=== PATIENT | female | born 1980 | race Two or more races ===

== ENCOUNTER 2016-10-22 17:43 | Emergency (ER) | payer MEDICAID ==
[~2016-10-22] VITALS: Ht 157.5 cm; Wt 83.9 kg
[~2016-10-22 17:43] MED LIST: ALBU18 IN; LISI-646 PO; LORA-154 PO
[2016-10-22 17:58] VITALS: BP 172/101
[2016-10-22] MEDS ORDERED: IPRATROPIUM BROM 0.5 MG/2.5ML INH SOL NEB ONE (21:15)
[2016-10-22] MEDS ORDERED: methylPREDNISolone SOD SUCC 125 MG/2 ML VL IM ONE (21:15)
[2016-10-22] MEDS ORDERED: ALBUTEROL SULF 2.5 MG/0.5ML(0.5%) NEB SOLN NEB ONE (21:15)
== END 2016-10-22 22:10 | disposition home or self-care (01) ==
LOC: ER 17:49
DX: J45.909 Unspecified asthma, uncomplicated (principal); I10 Essential (primary) hypertension; Z90.89 Acquired absence of other organs
CPT/HCPCS: 71020; 94640; 96372; 99284; J2930

== ENCOUNTER 2016-12-11 16:01 | Emergency (ER) | payer MEDICAID ==
[~2016-12-11] VITALS: Ht 157.5 cm; Wt 81.6 kg
[2016-12-11 17:00] LABS: Urine Bilirubin Negative (Negative); Urine Blood Negative /uL (Negative); Urine Color Yellow (Yellow); Urine Glucose Normal (Normal); Urine Ketone Negative (Negative); Urine Nitrite Negative (Negative); Urine RBC <1 /hpf (0 - 4); Urine Squamous Epithelial Cell FEW /hpf (<5); Urine Urobilinogen Normal (Negative); Urine pH 5.5 (5.0-8.0)
[2016-12-11 17:38] LABS: Basophils # (auto) 0 uL; Basophils % (auto) 0.3 % (0.0-2.0); DEFINITIVE VIEW TRANSMISSION; Eosinophils # (auto) 0.8 uL; Hematocrit 39.8 % (36.0-46.0); Hemoglobin 13.3 g/dL (12.2-16.2); Lymphocytes # (auto) 2.1 uL; Lymphocytes % (auto) 15.2 % (10.0-50.0); Mean Corpuscular Hemoglobin 26.6 pg (28.0-32.0); Mean Corpuscular Hgb Conc. 33.4 g/dL (32.0-36.0); Mean Corpuscular Volume 79.5 fL (80.0-100.0); Mean Platelet Volume 8.4 fL (7.4-10.4); Monocytes # (auto) 0.7 uL; Monocytes % (auto) 4.9 % (0.0-12.0); Neutrophils # (auto) 10.4 uL; Neutrophils % (auto) 73.6 % (37.0-80.0); Platelet Count (auto) 286 10^3/uL (140-450); Red Cell Distribution Width 16.6 % (11.6-16.0); White Blood Cell 14.1 10^3/uL (4.4-10.8)
[2016-12-11 17:39] LABS: Albumin 3.4 g/dL (3.4-5.0); Anion Gap 10 (5-15); Aspartate Aminotransferase 15 U/L (15-37); BUN/Creatinine Ratio 16.4; Blood Urea Nitrogen 9 mg/dL (7-18); Calcium 8.7 mg/dL (8.5-10.1); Carbon Dioxide 26 mmol/L (21-32); Chloride 104 mmol/L (98-107); GFR African American 159 mL/min; GFR Non-African American 131 mL/min; Glucose 111 mg/dL (74-106); Potassium 3.5 mmol/L (3.5-5.1); Sodium 140 mmol/L (136-145)
[2016-12-11 17:44] LABS: Alkaline Phosphatase 97 U/L (45-117); Bilirubin, Total 0.5 mg/dL (0.2-1.0); Total Protein 7.5 g/dL (6.4-8.2)
[2016-12-11] MEDS ORDERED: KETOROLAC TROMETH 30 MG/ML 1ML VIAL IV ONE (22:15)
[2016-12-11 22:49] LABS: B-Type Natriuretic Peptide 8.43 pg/mL (0-100)
[2016-12-11 22:49] LABS: INR 0.97 (0.9-1.15); Partial Thromboplastin Time 28.8 sec (22.64-33.71)
[2016-12-11 22:52] LABS: Temperature: 20.5 C (20.0-25.0)
[2016-12-11] MEDS ORDERED: IOHEXOL 350 MG/ML 100ML IJ ONE (23:00)
[2016-12-12] MEDS ORDERED: LEVOFLOXACIN 750MG 150 ML IV ONE (00:15)
[2016-12-12 01:12] VITALS: BP 140/103
== END 2016-12-12 02:58 | disposition home or self-care (01) ==
LOC: ER 16:02
DX: J18.9 Pneumonia, unspecified organism (principal); J45.909 Unspecified asthma, uncomplicated; I10 Essential (primary) hypertension; Z90.89 Acquired absence of other organs
CPT/HCPCS: 36415; 71020; 71275; 80053; 81001; 81025; 83880; 84484; 85025; 85610; 85730; 93005; 94761; 96365; 96366; 96375; 99285; J1885; J1956; Q9967

== ENCOUNTER 2017-01-01 21:25 | Emergency (ER) | payer MEDICAID ==
[~2017-01-01] VITALS: Ht 157.5 cm; Wt 81.6 kg
[2017-01-01] MEDS ORDERED: IPRATROPIUM BROM 0.5 MG/2.5ML INH SOL NEB ONE (21:45)
[2017-01-01] MEDS ORDERED: ALBUTEROL SULF 2.5 MG/0.5ML(0.5%) NEB SOLN NEB ONE (21:45)
[2017-01-01 22:28] LABS: DEFINITIVE VIEW TRANSMISSION; Hematocrit 41.3 % (36.0-46.0); Hemoglobin 13.7 g/dL (12.2-16.2); Mean Corpuscular Hemoglobin 26.4 pg (28.0-32.0); Mean Corpuscular Hgb Conc. 33.2 g/dL (32.0-36.0); Mean Corpuscular Volume 79.4 fL (80.0-100.0); Mean Platelet Volume 8.7 fL (7.4-10.4); Platelet Count (auto) 271 10^3/uL (140-450); Red Cell Distribution Width 15.9 % (11.6-16.0); White Blood Cell 9.4 10^3/uL (4.4-10.8)
[2017-01-01 22:37] LABS: Metamyelocytes % 0; Myelocytes % 0; Promyelocytes % 0; Reactive Lymphocytes 0
[2017-01-01 22:46] LABS: Albumin 3.9 g/dL (3.4-5.0); BUN/Creatinine Ratio 19.7; Bilirubin, Total 0.6 mg/dL (0.2-1.0); Calcium 9.3 mg/dL (8.5-10.1); Potassium 3.9 mmol/L (3.5-5.1); Total Protein 8.1 g/dL (6.4-8.2)
[2017-01-01 23:18] LABS: Platelet Estimate Adequate
[2017-01-02] MEDS ORDERED: IPRATROPIUM BROM 0.5 MG/2.5ML INH SOL NEB ONE (02:00)
[2017-01-02] MEDS ORDERED: ALBUTEROL SULF 2.5 MG/0.5ML(0.5%) NEB SOLN NEB ONE (02:00)
[2017-01-02] MEDS ORDERED: SODIUM CHLORIDE 0.9% 1,000 ML IV ONE (02:00)
[2017-01-02] MEDS ORDERED: LEVOFLOXACIN 750MG 150 ML IV ONE (02:00)
[2017-01-02] MEDS ORDERED: traMADol HCL 50 MG TAB PO ONE (02:45)
[2017-01-02] MEDS ORDERED: methylPREDNISolone SOD SUCC 125 MG/2 ML VL IV ONE (02:45)
[2017-01-02 05:20] VITALS: BP 148/100
== END 2017-01-02 06:46 | disposition home or self-care (01) ==
LOC: ER 21:38
DX: J45.909 Unspecified asthma, uncomplicated (principal); I10 Essential (primary) hypertension; R53.1 Weakness; Z90.49 Acquired absence of other specified parts of digestive tract
CPT/HCPCS: 36415; 71010; 80053; 85007; 85027; 87040; 94640; 96365; 96366; 96375; 99285; J1956; J2930

== ENCOUNTER 2017-01-22 15:37 | Emergency (ER) | payer MEDICAID ==
[~2017-01-22] VITALS: Ht 157.5 cm; Wt 79.4 kg
[2017-01-22 16:49] LABS: Urine Bilirubin Negative (Negative); Urine Blood Negative /uL (Negative); Urine Color Yellow (Yellow); Urine Glucose Normal (Normal); Urine Ketone Negative (Negative); Urine Nitrite Negative (Negative); Urine RBC 1 /hpf (0 - 4); Urine Squamous Epithelial Cell FEW /hpf (<5); Urine Urobilinogen Normal (Negative)
[2017-01-22 17:19] LABS: DEFINITIVE VIEW TRANSMISSION; Hematocrit 45.5 % (36.0-46.0); Hemoglobin 15.1 g/dL (12.2-16.2); Mean Corpuscular Hemoglobin 26.3 pg (28.0-32.0); Mean Corpuscular Hgb Conc. 33.1 g/dL (32.0-36.0); Mean Corpuscular Volume 79.3 fL (80.0-100.0); Mean Platelet Volume 8.4 fL (7.4-10.4); Platelet Count (auto) 271 10^3/uL (140-450); Red Cell Distribution Width 15.2 % (11.6-16.0); White Blood Cell 11.6 10^3/uL (4.4-10.8)
[2017-01-22 17:21] LABS: Metamyelocytes % 0; Myelocytes % 0; Promyelocytes % 0; Reactive Lymphocytes 0
[2017-01-22 17:52] LABS: Hypochromia Slight; Platelet Estimate Adequate
[2017-01-22 17:55] LABS: Albumin 3.9 g/dL (3.4-5.0); Alkaline Phosphatase 81 U/L (45-117); Anion Gap 7 (5-15); Aspartate Aminotransferase 26 U/L (15-37); BUN/Creatinine Ratio 13.8; Bilirubin, Total 0.6 mg/dL (0.2-1.0); Blood Urea Nitrogen 8 mg/dL (7-18); Calcium 9.2 mg/dL (8.5-10.1); Carbon Dioxide 26 mmol/L (21-32); Chloride 104 mmol/L (98-107); GFR African American 149 mL/min; GFR Non-African American 123 mL/min; Glucose 92 mg/dL (74-106); Magnesium 2.2 mg/dL (1.6-2.6); Potassium 3.6 mmol/L (3.5-5.1); Sodium 137 mmol/L (136-145); Total Protein 8.3 g/dL (6.4-8.2)
[2017-01-22 18:26] VITALS: BP 163/119
[2017-01-22] MEDS ORDERED: cefTRIAXone SOD 1,000 MG VL IM ONE (19:00)
== END 2017-01-22 19:31 | disposition home or self-care (01) ==
LOC: ER 15:37
DX: K02.9 Dental caries, unspecified (principal); R07.9 Chest pain, unspecified; I10 Essential (primary) hypertension; J45.909 Unspecified asthma, uncomplicated; Z88.6 Allergy status to analgesic agent
CPT/HCPCS: 36415; 71010; 80053; 81001; 81025; 83735; 84484; 84702; 85007; 85027; 93005; 96372; 99285; J0696

== ENCOUNTER 2019-08-12 11:52 | Inpatient (IN) | payer SELFPAY ==
[~2019-08-12] VITALS: Ht 157.5 cm; Wt 92.9 kg
[~2019-08-12 11:52] MED LIST changes: +ALBU108A5; +FLUT50SP; -LISI-646 PO; +LISI40TA PO
[2019-08-12 12:27] LABS: Hematocrit 43.4 % (36.0-46.0); Hemoglobin 14.6 g/dL (12.2-16.2); Mean Corpuscular Hgb Conc. 33.6 g/dL (32.0-36.0); Mean Corpuscular Volume 83.4 fL (80.0-100.0); Platelet Count (auto) 224 10^3/uL (140-450); Red Cell Distribution Width 14.9 % (11.8-14.3); White Blood Cell 10.6 10^3/uL (4.4-10.8)
[2019-08-12 12:29] LABS: Band Neutrophils % (manual) 0; Basophils % (manual) 0 (0.0-2.0); Blast Cells 0; Metamyelocytes % 0; Myelocytes % 0; Promyelocytes % 0; Reactive Lymphocytes 0
[2019-08-12] MEDS ORDERED: IPRATROPIUM BROM 0.5 MG/2.5ML INH SOL HHN ONE (12:30)
[2019-08-12] MEDS ORDERED: ALBUTEROL SULF 2.5 MG/0.5ML(0.5%) NEB SOLN HHN ONE (12:30)
[2019-08-12] MEDS ORDERED: methylPREDNISolone SOD SUCC 125 MG/2 ML VL IV ONE (12:30)
[2019-08-12 12:44] LABS: Alanine Aminotransferase 30 U/L (13-56); Albumin 3.6 g/dL (3.4-5.0); Anion Gap 5 (5-15); Aspartate Aminotransferase 16 U/L (15-37); BUN/Creatinine Ratio 16.1; Blood Urea Nitrogen 9 mg/dL (7-18); Calcium 8.9 mg/dL (8.5-10.1); Carbon Dioxide 27 mmol/L (21-32); Chloride 105 mmol/L (98-107); Eosinophils % (manual) 25 (0-7); GFR African American 153 mL/min; GFR Non-African American 127 mL/min; Glucose 106 mg/dL (74-106); Lymphocytes % (manual) 31 (10.0-50.0); Monocytes % (manual) 4 (0-12); Potassium 3.5 mmol/L (3.5-5.1); Sodium 137 mmol/L (136-145)
[2019-08-12 12:48] LABS: Alkaline Phosphatase 70 U/L (45-117); Bilirubin, Total 0.7 mg/dL (0.2-1.0); Total Protein 7.1 g/dL (6.4-8.2)
[2019-08-12 14:26] LABS: Urine Bacteria NONE SEEN /hpf (None Seen); Urine Blood Negative /uL (Negative); Urine Hyaline Cast FEW /lpf (0 - 2); Urine Mucus FEW (None Seen); Urine Specific Gravity 1.023 (1.001-1.035); Urine WBC 1 /hpf (0 - 5)
[2019-08-12] MEDS ORDERED: PROMETHAZINE HCL 25 MG/ML 1ML IV PRN (14:30)
[2019-08-12] MEDS ORDERED: NITROGLYCERIN 0.4 MG SL TAB SL PRN (14:30)
[2019-08-12] MEDS ORDERED: TEMAZEPAM 15 MG CAP PO PRN (14:30)
[2019-08-12] MEDS ORDERED: ACETAMINOPHEN 500 MG TAB PO PRN (14:30)
[2019-08-12] MEDS ORDERED: MORPHINE SULF INJ 2 MG/ML SYRINGE 1ML IV PRN (14:30)
[2019-08-12] MEDS ORDERED: LACTULOSE 20Gm/30ML SOLN PO PRN (14:30)
[2019-08-12] MEDS ORDERED: ALBUTEROL SULF 2.5 MG/0.5ML(0.5%) NEB SOLN NEB PRN (14:30)
[2019-08-12 14:54] VITALS: BP 140/93
[2019-08-12 15:04] LABS: Alcohol, Urine < 3.0 mg/dL (0-5); Amphetamine Screen, Urine NEGATIVE (NEGATIVE); Barbiturate Scree,Urine NEGATIVE (NEGATIVE); Benzodiazephine Screen, Urine NEGATIVE (NEGATIVE); Cannabinoid Screen, Urine POSITIVE (NEGATIVE); Cocaine Screen, Urine NEGATIVE (NEGATIVE); Opiate Scree,Urine NEGATIVE (NEGATIVE); Phencyclidine Screen, Urine NEGATIVE (NEGATIVE)
[2019-08-12] MEDS: SODIUM CHLORIDE 0.9% 1,000 ML IV SCH (15:16)
[2019-08-12] MEDS: DOXYCYCLINE 100MG/250ML 250 ML IV SCH (15:19)
[2019-08-12] MEDS: ALBUTEROL SULF 2.5 MG/0.5ML(0.5%) NEB SOLN NEB SCH (17:40)
--- NOTE | 2019-08-12 18:30 | NUR ---
Telemetry admit from ER BAUDILIOALLYSSA admitted to Telemetry unit after SBAR received. Patient oriented to Latoya Carbajal RN, unit, room, bed, and unit policies regarding patient care and visiting hours. Patient now on continuous telemetry monitoring, tele box #[id number] and telemetry reading on arrival to unit is sinus tachycardia rate is 111 bpm. Patient placed on bedside oxygen, weighed by bedscale and encouraged to call if they need something. All questions and concerns addressed, patient verbalized understanding. Note:
[2019-08-12] MEDS: methylPREDNISolone SOD SUCC 40 MG/ML VL IV SCH ×2 (18:55→23:50)
--- NOTE | 2019-08-12 19:05 | NUR ---
Opening Shift Note Assumed care of patient, awake and alert. No S/S of distress, no complaints of SOB at this time. POC discussed and questions answered. Bed is locked in lowest position with side rails up x2, call is within reach and patient is encouraged to call as needed. Will continue to monitor for changes Q1hr and PRN.
--- NOTE | 2019-08-12 19:21 | NUR ---
Endorsed care to NOC RN.
[2019-08-12 20:00] VITALS: BP_SYST 132; BP_SYST 159; BP_DIAS 84; BP_DIAS 85
[2019-08-12] MEDS: traMADol HCL 50 MG TAB PO PRN (20:22)
[2019-08-12 22:10] VITALS: BP 159/85
[2019-08-13] MEDS: ALBUTEROL SULF 2.5 MG/0.5ML(0.5%) NEB SOLN NEB SCH ×4 (00:39→18:01)
[2019-08-13] MEDS: DOXYCYCLINE 100MG/250ML 250 ML IV SCH (02:22)
[2019-08-13] MEDS: SODIUM CHLORIDE 0.9% 1,000 ML IV SCH (03:46)
--- NOTE | 2019-08-13 04:55 | NUR ---
EKG COMPLETE PER ORDERS. PATIENT HAS NO COMPLAINTS OF CHEST PAIN AT THIS TIME.
[2019-08-13 05:00] VITALS: BP 147/85
[2019-08-13] MEDS: methylPREDNISolone SOD SUCC 40 MG/ML VL IV SCH ×3 (06:03→17:46)
[2019-08-13] MEDS: traMADol HCL 50 MG TAB PO PRN (06:07)
[2019-08-13 08:00] VITALS: BP 140/87
[2019-08-13] MEDS: ENOXAPARIN SOD 40 MG/0.4 ML SYRINGE SC SCH (09:11)
[2019-08-13] MEDS: PANTOPRAZOLE 40 MG TAB PO SCH (09:11)
[2019-08-13 12:00] VITALS: BP 147/87
[2019-08-13] MEDS ORDERED: LISINOPRIL 20 MG TAB PO ONE (14:00)
[2019-08-13] MEDS ORDERED: LORATADINE 10 MG TAB PO ONE (14:00)
[2019-08-13] MEDS: KETOROLAC TROMETH 30 MG/ML 1ML VIAL IV PRN ×2 (14:24→20:51)
[2019-08-13 16:59] VITALS: BP 144/93
--- NOTE | 2019-08-13 19:05 | NUR ---
Opening Shift Note Assumed care of patient, awake and alert. No S/S of distress/SOB or pain. Instructed on POC and to call for assistance as needed, will continue to monitor for changes Q1hr and PRN.
[2019-08-13] MEDS: DOXYCYCLINE 100 MG TAB/CAP PO SCH (22:11)
[2019-08-13 22:35] VITALS: BP 141/79
[2019-08-14] MEDS: methylPREDNISolone SOD SUCC 40 MG/ML VL IV SCH ×4 (00:10→19:48)
[2019-08-14] MEDS: ALBUTEROL SULF 2.5 MG/0.5ML(0.5%) NEB SOLN NEB SCH ×4 (00:30→19:05)
[2019-08-14 05:13] VITALS: BP 144/82
[2019-08-14] MEDS: traMADol HCL 50 MG TAB PO PRN ×2 (05:48→20:55)
[2019-08-14 08:00] VITALS: BP 141/85
--- NOTE | 2019-08-14 08:00 | NUR ---
Opening Shift Note Assumed care of patient, awake and alert. No S/S of distress/SOB or pain. Instructed on POC and to call for assist PRN, bed in locked and lowest position and call light within reach. Will continue to monitor for changes Q1hr and PRN.
[2019-08-14] MEDS: LORATADINE 10 MG TAB PO SCH (10:00)
[2019-08-14] MEDS: DOXYCYCLINE 100 MG TAB/CAP PO SCH ×2 (10:00→20:55)
[2019-08-14] MEDS: PANTOPRAZOLE 40 MG TAB PO SCH (10:00)
[2019-08-14] MEDS: ENOXAPARIN SOD 40 MG/0.4 ML SYRINGE SC SCH (10:00)
[2019-08-14] MEDS: LISINOPRIL 20 MG TAB PO SCH (10:01)
[2019-08-14 12:00] VITALS: BP 143/97
--- NOTE | 2019-08-14 12:15 | NUR ---
MD ROUNDS DR ADAMES AT BEDSIDE DISCUSSING POC WITH PATIENT. ALL QUESTIONS/CONCERNS ANSWERED. NEW ORDERS RECEIVED/CARRIED OUT. WILL CONTINUE TO MONITOR
[2019-08-14] MEDS ORDERED: DOX100T PO (13:12)
[2019-08-14] MEDS ORDERED: MONT10TA34 PO (13:12)
[2019-08-14 17:00] VITALS: BP 147/103
[2019-08-14 22:00] VITALS: BP 166/95
[2019-08-14] MEDS ORDERED: MONTELUKAST SODIUM 10 MG TAB PO SCH (22:00)
[2019-08-15] MEDS: ALBUTEROL SULF 2.5 MG/0.5ML(0.5%) NEB SOLN NEB SCH ×3 (00:04→11:00)
[2019-08-15] MEDS: methylPREDNISolone SOD SUCC 40 MG/ML VL IV SCH ×3 (00:26→12:00)
--- NOTE | 2019-08-15 04:15 | NUR ---
Opening Shift Note Assumed care of patient, asleep on bed resting comfortably. No S/S of distress/SOB or pain. Instructed on POC and to call for assist PRN, will continue to monitor for changes Q1hr and PRN.
[2019-08-15 05:15] VITALS: BP 158/100
[2019-08-15] MEDS: KETOROLAC TROMETH 30 MG/ML 1ML VIAL IV PRN (06:25)
[2019-08-15] MEDS: IPRATROPIUM BROM 0.5 MG/2.5ML INH SOL NEB SCH ×2 (06:27→11:00)
[2019-08-15 09:00] VITALS: BP 158/102
[2019-08-15] MEDS: ENOXAPARIN SOD 40 MG/0.4 ML SYRINGE SC SCH (10:00)
[2019-08-15] MEDS: DOXYCYCLINE 100 MG TAB/CAP PO SCH (10:36)
[2019-08-15] MEDS: LISINOPRIL 20 MG TAB PO SCH (10:37)
[2019-08-15] MEDS: LORATADINE 10 MG TAB PO SCH (10:37)
[2019-08-15] MEDS: PANTOPRAZOLE 40 MG TAB PO SCH (10:38)
--- NOTE | 2019-08-15 12:40 | NUR ---
Discharge instructions given as ordered. Encourage to follow up with [facility] urgent care, coupon provided, pt has no pcp and insurance, pt provided with needed information to get primary doctor as instructed. All questions and concerns addressed. Patient verbalized understanding. Medication reconciliation form completed and copy given to patient. IV removed with catheter intact, pressure dressing applied. Telemetry unit returned to ICU. Patient taken to vehicle via wheelchair with all personal belongings, accompanied by staff and family member. No distress noted at time of departure.
== END 2019-08-15 12:40 | disposition home or self-care (01) | DRG 189 ==
LOC: ER 11:58 → TELE 11:59 → TELE-WESTW 18:34
PROVIDERS: ADMIT Internal Medicine; ATTEND Internal Medicine
DX: J96.00 Acute respiratory failure, unspecified whether with hypoxia or hypercapnia (principal); J45.902 Unspecified asthma with status asthmaticus; I10 Essential (primary) hypertension; E66.01 Morbid (severe) obesity due to excess calories; F12.90 Cannabis use, unspecified, uncomplicated; R07.81 Pleurodynia; Z68.37 Body mass index [BMI] 37.0-37.9, adult; Z88.5 Allergy status to narcotic agent; Z82.49 Family history of ischemic heart disease and other diseases of the circulatory system; Z82.5 Family history of asthma and other chronic lower respiratory diseases; Z83.3 Family history of diabetes mellitus; Z90.49 Acquired absence of other specified parts of digestive tract
CPT/HCPCS: 36415; 71046; 80053; 80307; 81001; 82550; 84484; 85007; 85027; 85379; 85652; 87070; 87205; 87804; 94640; 94644; 96361; 96374; G0378; J1885; J3490

== ENCOUNTER 2019-10-30 11:51 | Emergency (ER) | payer MEDICAID ==
[~2019-10-30] VITALS: Ht 160 cm; Wt 88.5 kg
[~2019-10-30 11:51] MED LIST changes: +DOX100T PO; +MONT10TA34 PO
[2019-10-30] MEDS ORDERED: SODIUM CHLORIDE 0.9% 1,000 ML IV ONE ×2 (12:20→16:00)
[2019-10-30] MEDS ORDERED: ALBUTEROL SULF 2.5 MG/0.5ML(0.5%) NEB SOLN HHN ONE (12:30)
[2019-10-30] MEDS ORDERED: methylPREDNISolone SOD SUCC 125 MG/2 ML VL IV ONE (12:30)
[2019-10-30 12:59] LABS: Mean Corpuscular Hemoglobin 28.5 pg (28.0-32.0); Mean Corpuscular Hgb Conc. 34.1 g/dL (32.0-36.0); Mean Corpuscular Volume 83.4 fL (80.0-100.0); Platelet Count (auto) 220 10^3/uL (140-450); Red Blood Cells 5.28 10^6/uL (4.0-5.20); Red Cell Distribution Width 13.9 % (11.8-14.3); White Blood Cell 7.9 10^3/uL (4.4-10.8)
[2019-10-30 13:08] LABS: Band Neutrophils % (manual) 0; Basophils % (manual) 0 (0.0-2.0); Blast Cells 0; Metamyelocytes % 0; Myelocytes % 0; Promyelocytes % 0; Reactive Lymphocytes 0
[2019-10-30 13:11] LABS: Albumin 4.1 g/dL (3.4-5.0); Anion Gap 8 (5-15); Blood Urea Nitrogen 6 mg/dL (7-18); Calcium 8.9 mg/dL (8.5-10.1); Carbon Dioxide 26 mmol/L (21-32); Chloride 101 mmol/L (98-107); Glucose 108 mg/dL (74-106); Potassium 3.2 mmol/L (3.5-5.1); Sodium 135 mmol/L (136-145)
[2019-10-30 13:16] LABS: Alanine Aminotransferase 24 U/L (13-56); Alkaline Phosphatase 77 U/L (45-117); Aspartate Aminotransferase 16 U/L (15-37); BUN/Creatinine Ratio 11.5; Bilirubin, Total 0.7 mg/dL (0.2-1.0); GFR African American 167 mL/min; GFR Non-African American 138 mL/min; Total Protein 7.7 g/dL (6.4-8.2)
[2019-10-30 13:39] LABS: Eosinophils % (manual) 2 (0-7); Lymphocytes % (manual) 5 (10.0-50.0); Monocytes % (manual) 6 (0-12)
[2019-10-30 15:21] LABS: Urine Bacteria FEW /hpf (None Seen); Urine Blood TRACE /uL (Negative); Urine Mucus FEW (None Seen); Urine Specific Gravity 1.007 (1.001-1.035); Urine WBC <1 /hpf (0 - 5)
[2019-10-30 16:43] VITALS: BP 161/92
[2019-11-02] MEDS ORDERED: FLUT110A INH (11:30)
[2019-11-02] MEDS ORDERED: OSEL75CA11 PO (11:30)
== END 2019-10-30 17:26 | disposition home or self-care (01) ==
LOC: ER 11:51
DX: J45.909 Unspecified asthma, uncomplicated (principal); I10 Essential (primary) hypertension
CPT/HCPCS: 36415; 71045; 80053; 81001; 83735; 84484; 85007; 85027; 93005; 94640; 96374; 99284; J2930; J7611

== ENCOUNTER 2022-11-06 12:47 | Emergency (ER) | payer MEDICAID ==
[~2022-11-06] VITALS: Ht 157.5 cm; Wt 96.3 kg
[~2022-11-06 12:47] MED LIST changes: -DOX100T PO; +FLUT110A INH; -LISI40TA PO; +LISI40TA11 PO; -LORA-154 PO; +LORA-483 PO; +MONT-8 PO; -MONT10TA34 PO; +OSEL75CA5 PO
[2022-11-06 14:08] VITALS: BP 148/89
[2022-11-06] MEDS ORDERED: KETOROLAC TROMETH 60MG/2ML VIAL IM ONE (14:45)
[2022-11-06] MEDS ORDERED: IBUP800T27 PO (14:59)
== END 2022-11-06 15:09 | disposition home or self-care (01) ==
LOC: ER 12:47
DX: S83.91XA Sprain of unspecified site of right knee, initial encounter (principal); M11.261 Other chondrocalcinosis, right knee; X58.XXXA Exposure to other specified factors, initial encounter; Y93.89 Activity, other specified; Y92.89 Other specified places as the place of occurrence of the external cause; Y99.8 Other external cause status
CPT/HCPCS: 73562; 96372; 99283; J1885

== ENCOUNTER 2023-01-13 13:55 | Inpatient (IN) | payer MEDICAID ==
[~2023-01-13] VITALS: Ht 160 cm; Wt 98.6 kg
[~2023-01-13 13:55] MED LIST changes: +IBUP800T27 PO
[2023-01-13] MEDS ORDERED: ALBUTEROL SULF 2.5 MG/0.5ML(0.5%) NEB SOLN HHN ONE (14:15)
[2023-01-13] MEDS ORDERED: IPRATROPIUM BROM 0.5 MG/2.5ML INH SOL HHN ONE (14:15)
[2023-01-13] MEDS ORDERED: methylPREDNISolone SOD SUCC 125 MG/2 ML VL IV ONE (14:15)
[2023-01-13 14:30] LABS: Basophils # (auto) 0.1 10 ^3/uL (0-0.2); Eosinophils # (auto) 1.2 10 ^3/uL (0-0.8); Eosinophils % (auto) 9.6 % (0.0-7.0); Hemoglobin 13.9 g/dL (12.2-16.2); Monocytes # (auto) 0.6 10 ^3/uL (0-1.3); Monocytes % (auto) 4.7 % (0.0-12.0)
[2023-01-13 14:31] LABS: Basophils % (auto) 0.7 % (0.0-2.0); Hematocrit 41.8 % (36.0-46.0); Lymphocytes # (auto) 2.2 10 ^3/uL (0.4-5.4); Lymphocytes % (auto) 17.4 % (10.0-50.0); Mean Corpuscular Hemoglobin 26.4 pg (28.0-32.0); Mean Corpuscular Hgb Conc. 33.3 g/dL (32.0-36.0); Mean Corpuscular Volume 79.2 fL (80.0-100.0); Neutrophils # (auto) 8.5 10 ^3/uL (1.6-8.6); Neutrophils % (auto) 67.6 % (37.0-80.0); Nucleated Red Blood Cells % 0.2 %; Red Blood Cells 5.27 10^6/uL (4.0-5.20); White Blood Cell 12.6 10^3/uL (4.4-10.8)
[2023-01-13 14:45] LABS: Albumin 3.7 g/dL (3.4-5.0); Calcium 9.6 mg/dL (8.5-10.1); Potassium 3.6 mmol/L (3.5-5.1)
[2023-01-13 14:49] LABS: BUN/Creatinine Ratio 16.1 (10.0-20.0); Bilirubin, Total 0.7 mg/dL (0.2-1.0); Total Protein 7.4 g/dL (6.4-8.2)
[2023-01-13] MEDS ORDERED: IPRATROPIUM BROM 0.5 MG/2.5ML INH SOL NEB ONE (20:15)
[2023-01-13] MEDS ORDERED: ALBUTEROL SULF 2.5 MG/0.5ML(0.5%) NEB SOLN NEB ONE (20:15)
[2023-01-13] MEDS ORDERED: cloNIDine HCL 0.1 MG TAB PO ONE (21:00)
[2023-01-13] MEDS ORDERED: AZITHROMYCIN 500MG/ 250ML 250 ML IV ONE (23:30)
[2023-01-13] MEDS ORDERED: DOCUSATE SOD 100 MG CAP PO PRN (23:30)
[2023-01-13] MEDS ORDERED: hydrALAZINE HCL 20 MG/ML VL IV PRN (23:30)
[2023-01-13] MEDS ORDERED: TEMAZEPAM 15 MG CAP PO PRN (23:30)
[2023-01-13] MEDS ORDERED: ACETAMINOPHEN 325 MG TAB PO PRN (23:30)
[2023-01-13] MEDS ORDERED: SODIUM CHLORIDE 0.9% 1,000 ML IV SCH (23:30)
[2023-01-13] MEDS ORDERED: ONDANSETRON HCL 4 MG/2 ML VIAL IV PRN (23:30)
[2023-01-13 23:45] VITALS: BP 170/110
[2023-01-14] MEDS ORDERED: NITROGLYCERIN 0.4 MG SL TAB SL PRN
[2023-01-14] MEDS ORDERED: MORPHINE SULFATE INJ 2 MG/ml SYRG IV PRN
[2023-01-14 05:47] LABS: Basophils # (auto) 0 10 ^3/uL (0-0.2); Basophils % (auto) 0.1 % (0.0-2.0); Eosinophils # (auto) 0 10 ^3/uL (0-0.8); Monocytes # (auto) 0.3 10 ^3/uL (0-1.3); White Blood Cell 15.8 10^3/uL (4.4-10.8)
[2023-01-14 05:49] LABS: Hematocrit 42.4 % (36.0-46.0); Lymphocytes # (auto) 1.1 10 ^3/uL (0.4-5.4); Lymphocytes % (auto) 6.9 % (10.0-50.0); Mean Corpuscular Hemoglobin 26.8 pg (28.0-32.0); Mean Corpuscular Hgb Conc. 33.1 g/dL (32.0-36.0); Mean Corpuscular Volume 80.8 fL (80.0-100.0); Monocytes % (auto) 1.7 % (0.0-12.0); Neutrophils # (auto) 14.4 10 ^3/uL (1.6-8.6); Neutrophils % (auto) 91.3 % (37.0-80.0); Red Blood Cells 5.25 10^6/uL (4.0-5.20); Red Cell Distribution Width 15.3 % (11.8-14.3)
[2023-01-14] MEDS ORDERED: methylPREDNISolone SOD SUCC 40 MG/ML VL IV SCH (06:00)
[2023-01-14 06:05] LABS: Potassium 3.7 mmol/L (3.5-5.1)
[2023-01-14 06:14] LABS: Albumin 3.7 g/dL (3.4-5.0); BUN/Creatinine Ratio 23.4 (10.0-20.0); Bilirubin, Total 0.6 mg/dL (0.2-1.0); Calcium 9.9 mg/dL (8.5-10.1); Total Protein 7.9 g/dL (6.4-8.2)
[2023-01-14 07:52] LABS: Urine Bacteria NONE SEEN /hpf (None Seen); Urine Blood Negative /uL (Negative); Urine Mucus FEW (None Seen); Urine Specific Gravity 1.036 (1.001-1.035); Urine WBC 2 /hpf (0 - 5)
[2023-01-14] MEDS: AZITHROMYCIN 500MG/ 250ML 250 ML IV SCH ×2 (09:41→11:41)
[2023-01-14] MEDS: FAMOTIDINE (10MG/ML) 2ML VL IV SCH ×2 (09:51→22:57)
[2023-01-14] MEDS: amLODIPine BESYLATE 5 MG TAB PO SCH (09:52)
[2023-01-14] MEDS: LISINOPRIL 20 MG TAB PO SCH (09:53)
[2023-01-14] MEDS: ASCORBIC ACID 500 MG TAB PO SCH ×2 (09:53→22:58)
[2023-01-14 10:14] VITALS: BP 155/91
[2023-01-14] MEDS: ZINC SULFATE 220mg CAP or TAB PO SCH ×2 (10:30→12:30)
[2023-01-14 12:51] VITALS: BP 147/86
[2023-01-14] MEDS: methylPREDNISolone SOD SUCC 125 MG/2 ML VL IV SCH ×2 (14:00→22:57)
[2023-01-14] MEDS: ALBUTEROL SULF 2.5 MG/0.5ML(0.5%) NEB SOLN NEB PRN ×2 (14:03→20:38)
[2023-01-14] MEDS: IPRATROPIUM BROM 0.5 MG/2.5ML INH SOL NEB PRN ×2 (14:03→20:38)
[2023-01-14 17:00] VITALS: BP 143/87
[2023-01-14 22:00] VITALS: BP 138/80
[2023-01-15 05:00] VITALS: BP 140/86
[2023-01-15] MEDS: methylPREDNISolone SOD SUCC 125 MG/2 ML VL IV SCH ×2 (06:53→12:41)
[2023-01-15] MEDS: IPRATROPIUM BROM 0.5 MG/2.5ML INH SOL NEB PRN (07:23)
[2023-01-15] MEDS: ALBUTEROL SULF 2.5 MG/0.5ML(0.5%) NEB SOLN NEB PRN (07:23)
[2023-01-15 09:00] VITALS: BP 146/89
[2023-01-15] MEDS ORDERED: AZIT500T66 PO (09:54)
[2023-01-15] MEDS ORDERED: PRED20TA2 PO (09:54)
[2023-01-15] MEDS: FAMOTIDINE (10MG/ML) 2ML VL IV SCH (10:47)
[2023-01-15] MEDS: AZITHROMYCIN 500MG/ 250ML 250 ML IV SCH (10:47)
[2023-01-15] MEDS: ASCORBIC ACID 500 MG TAB PO SCH (10:48)
[2023-01-15] MEDS: LISINOPRIL 20 MG TAB PO SCH (10:48)
[2023-01-15] MEDS: amLODIPine BESYLATE 5 MG TAB PO SCH (10:50)
[2023-01-15 11:40] VITALS: BP 146/89
[2023-01-15 13:00] VITALS: BP 163/99
== END 2023-01-15 13:15 | disposition home or self-care (01) | DRG 139 ==
LOC: ER 13:55 → EDBD 13:55 → TELE 01-14 00:01 → TELE-CENTR 01-14 10:35
PROVIDERS: ADMIT Nurse Practitioner Family; ATTEND Family Medicine
DX: J18.9 Pneumonia, unspecified organism (principal); J96.01 Acute respiratory failure with hypoxia; J45.52 Severe persistent asthma with status asthmaticus; Z20.822 Contact with and (suspected) exposure to COVID-19; D72.829 Elevated white blood cell count, unspecified; I10 Essential (primary) hypertension; I16.0 Hypertensive urgency; Z88.5 Allergy status to narcotic agent; Z90.49 Acquired absence of other specified parts of digestive tract; Z88.8 Allergy status to other drugs, medicaments and biological substances
CPT/HCPCS: 36415; 71045; 80053; 81001; 85025; 87426; 87804; 94640; 96365; 96375; 96376; G0378; J3490

== ENCOUNTER 2024-09-21 16:04 | Emergency (ER) | payer MEDICAID ==
[~2024-09-21] VITALS: Ht 157.5 cm; Wt 99.3 kg
[~2024-09-21 16:04] MED LIST changes: +AZIT500T66 PO; +IBUP-1456 PO; -IBUP800T27 PO; -LISI40TA11 PO; +LISI40TA16 PO; +PRED20TA2 PO
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
[2024-09-21] MEDS ORDERED: IBU600T PO (17:22)
[2024-09-21 18:22] VITALS: BP 169/87; PULSE 80; RESP 19; TEMP 98.8; O2SAT 95
== END 2024-09-21 18:24 | disposition home or self-care (01) ==
LOC: ER 16:06
DX: S80.01XA Contusion of right knee, initial encounter (principal); J45.909 Unspecified asthma, uncomplicated; I10 Essential (primary) hypertension; F12.90 Cannabis use, unspecified, uncomplicated; Z88.8 Allergy status to other drugs, medicaments and biological substances; Z79.899 Other long term (current) drug therapy; Z90.49 Acquired absence of other specified parts of digestive tract; V89.2XXA Person injured in unspecified motor-vehicle accident, traffic, initial encounter; Y93.89 Activity, other specified; Y92.89 Other specified places as the place of occurrence of the external cause; Y99.8 Other external cause status
CPT/HCPCS: 73560

== ENCOUNTER 2024-12-09 22:36 | Emergency (ER) | payer MEDICAID ==
[~2024-12-09] VITALS: Ht 157.5 cm; Wt 100.0 kg
[~2024-12-09 22:36] MED LIST changes: +IBU600T PO
--- NOTE | 2024-12-09 23:04 | ED.PDOC ---
Back pain HPI HPI Comments Pt C/O left posterior thigh pain. Reports she was skating and attempted to stop when her left leg kept going forward and she landed in a splits position and "heard something snap" in the back of her left thigh. Denies numbness or weakness Chief Complaint: Lower Extremity Time Seen by MD: 23:01 Primary Care Provider: KARTHIK Reviewed Notes: Nurses Notes, Medications, Allergies Allergies: Coded Allergies: Codeine (Verified Allergy, Unknown, 01/01/17) Dexamethasone (Verified Allergy, Unknown, 10/30/19) Home Meds Active Scripts Tizanidine Hydrochloride (Tizanidine Hcl) 4 Mg Tab, 4 MG PO BID PRN for 6 Days, #12 TAB Prov:VIKTORIA GARCIA LOCKSTITCH COLLAR SETTER 12/10/24 Methylprednisolone (Medrol Dosepak) 4 Mg Sabas, 4 MG PO UD for 6 Days, #21 TAB UAD Prov:VIKTORIA GARCIAP 12/10/24 Ibuprofen Micronized (MOTRIN TABLET) 600 Mg Tb, 600 MG PO TID PRN, #40 TAB *Black box warning-NSAIDS can increase risk of [place] & hypertension, GI irritation, ulceration, bleed, perferation. Do not use post cardiac surgery. Use short duration/lowest effective dose. Prov:SARA ANDREW MD 09/21/24 Prednisone (Prednisone) 20 Mg Tab, 20 MG PO DAILY, #7 MG Prov:SHWETA VELAZCO MD 01/15/23 Azithromycin (Azithromycin) 500 Mg Tab, 1 TAB PO DAILY, #7 TAB Prov:SHWETA VELAZCO MD 01/15/23 Ibuprofen (Ibuprofen) 800 Mg Tab, 1 TAB PO TID, #30 TAB Prov:IBIS WYNN 11/06/22 Fluticasone Propionate (FLOVENT HFA 110Mcg INH) 110 Mcg Ih, 2 PUFF INH BID, #1 INHALER 2 Refills Prov:MARCI ADAMES MD 11/02/19 Oseltamivir Phosphate (Tamiflu) 75 Mg Cap, 1 CAP PO BID, #10 CAP Prov:MARCI ADAMES MD 11/02/19 Montelukast Sodium (MONTELUKAST SODIUM) 10 Mg Tab, 1 TAB PO DAILY, #30 TAB 0 Refills Prov:MARCI ADAMES MD 08/14/19 Reported Medications Albuterol Sulfate (Albuterol Sulfate Hfa) 108 Mcg/Act Aer 06/21/19 Fluticasone Propionate (Nasal) (Fluticasone Propionate) 50 Mcg/Act Spr 06/21/19 Lisinopril (Lisinopril) 40 Mg Tab, 40 MG PO DAILY for 30 Days, MG 08/09/18 Loratadine (CLARITIN TABLET) 10 Mg Tb, 10 MG PO DAILY, #30 02/24/15 Albuterol Sulfate (Ventolin Hfa) Aer, 2 PUFF IN QIDP PRN for SHORTNESS OF BREATH, #18 02/24/15 Information Source: Patient Mode of Arrival: Ambulatory Past Medical History PAST MEDICAL HISTORY: Asthma, HTN Surgical History: Appendectomy METERS SUPERINTENDENT History: No Pertinent METERS SUPERINTENDENT History Family History Family History: Reviewed,noncontributory to illness Social History Smoker: Non-Smoker Alcohol: Occasionally Drugs: Marijuana Lives In: Home Constitutional: denies: chills, diaphoresis, fatigue, fever, malaise, sweats, weakness, others EENTM: denies: blurred vision, double vision, ear bleeding, ear discharge, ear drainage, ear pain, ear ringing, eye pain, eye redness, hearing loss, mouth pain, mouth swelling, nasal discharge, nose bleeding, nose congestion, nose pain, photophobia, tearing, throat pain, throat swelling, voice changes, others Respiratory: denies: cough, hemoptysis, orthopnea, SOB at rest, shortness of breath, SOB with excertion, stridor, wheezing, others Cardiovascular: denies: chest pain, dizzy spells, diaphoresis, Dyspnea on exertion, edema, irregular heart beat, left arm pain, lightheadedness, palpitations, PND, syncope, others Physical Exam General Appearance: No Apparent Distress, Normal HEENT: Pharynx Normal Neck: Full Range of Motion, Non-Tender Respiratory: Lungs Clear, No Respiratory Distress, Normal Breath Sounds Cardiovascular: No Murmur, Normal Peripheral Pulses, Regular Rate/Rhythm Breast Exam: Deferred Gastrointestinal: Non Tender, Soft Genitalia: Deferred Pelvic: Deferred Rectal: Deferred Extremities: Normal capillary refill, Normal inspection, Normal range of motion, Non-tender, No pedal edema Musculoskeletal : Location: Left Extremity Location: Thigh (Minor tenderness palpated over posterior right thigh. No obvious external trauma.) Apperance: Normal Neurologic: Alert, button maker II-XII nml as Tested, No Motor Deficits, Normal Affect, Normal Mood, No Sensory Deficits Cerebellar Function: Normal Reflexes: Normal Skin: Dry, Normal Color, Warm Lymphatic: No Adenopathy Was a procedure done? Was a procedure done?: No Back Pain Differential Dx Differential Diagnosis: Fracture, Musculoskeletal Pain, Strain X-Ray, Labs, Meds, VS Vital Signs Date Time Temp Pulse Resp B/P (MAP) Pulse Ox O2 Delivery O2 Flow Rate FiO2 12/10/24 00:04 89 17 100 Room Air* 0 21 12/10/24 00:03 98.2 78 19 122/84 (97) 100 98.2 12/09/24 22:44 97.9 100 20 135/91 (106) 94 97.9 Current Medications Medications (Trade) Dose Ordered Sig/Katherin Route Start Time Stop Time Status Last Admin Ketorolac Tromethamine (Toradol Injection) 60 mg ONCE ONCE IM 12/09/24 23:15 12/09/24 23:16 DC 12/10/24 00:02 Acetaminophen/ Hydrocodone Bitart ([place] 10/325MG Tab) 1 tab ONCE ONCE PO 12/09/24 23:15 12/09/24 23:16 DC 12/10/24 00:02 X-Ray, Labs, Meds, VS Comment Left hip and left femur x-ray shows no acute fractures, osseous lesions, dislocations. So likely a hamstring strain. Patient reports pain relief with Toradol 60 mg IM and [place] 10 mg p.o.. We will discharge home with crutches. Script tizanidine and ibuprofen. Sinus to follow up with her PCP 1-2 days consider further imaging since she was MRI if symptoms persist. take medications as prescribed side effects discussed. ER return precautions given patient indicates understanding agrees with discharge plan of care. Time of 1ST Reevaluation: 02:02 Reevaluation 1ST: Improved Patient Education/Counseling: Diagnosis, Treatment, Prognosis, Need For Follow Up Family Education/Counseling: Diagnosis, Treatment, Prognosis, Need For Follow Up Departure 1 Departure Time of Disposition: 02:02 Impression: Primary Impression: Hamstring muscle strain Qualified Codes: S76.312A - Strain of muscle, fascia and tendon of the posterior muscle group at thigh level, left thigh, initial encounter Disposition: HOME / SELF CARE / HOMELESS Condition: Stable e-Prescriptions Tizanidine Hydrochloride (Tizanidine Hcl) 4 Mg Tab 4 MG PO BID PRN for 6 Days, #12 TAB Prov: VIKTORIA GARCIA 12/10/24 Methylprednisolone (Medrol Dosepak) 4 Mg Sabas 4 MG PO UD for 6 Days, #21 TAB UAD Prov: VIKTORIA GARCIA 12/10/24 Discharged With: Other (Daughter) Critical Care Note Critical Care Time?: No Stability Stability form required: No VIKTORIA GARCIA Dec 09, 2024 23:04
[2024-12-10] MEDS: HYDROcodone-ACET 10/325MG TAB PO ONE (00:02)
[2024-12-10] MEDS: KETOROLAC TROMETH 60MG/2ML VIAL IM ONE (00:02)
[2024-12-10 00:03] VITALS: BP 122/84; TEMP 98.2
[2024-12-10 00:04] VITALS: PULSE 89; RESP 17; O2SAT 100
--- NOTE | 2024-12-10 00:34 | DVH ---
EXAM: XY L FEMUR XRAY HISTORY: pain/iinjury COMPARISON: None TECHNIQUE: AP and lateral views of the left femur were performed. FINDINGS: No evidence of fracture or other osseous abnormality about the left femur. The left hip and knee are grossly normal. IMPRESSION: No acute fracture of the left femur.
--- NOTE | 2024-12-10 00:39 | DVH ---
XY PELVIS AP HISTORY: pain/injury TECHNICAL DATA: Frontal view was obtained of the pelvis. COMPARISON: None FINDINGS: There is no abnormality involving the bony pelvis. The sacroiliac joints appear normal. There is no a bnormality of the symphysis pubis. The hip joint spaces are symmetric. The proximal femurs demonstrat e no abnormality. IMPRESSION: No acute fracture or dislocation of the pelvis.
[2024-12-10] MEDS ORDERED: METH4PAK PO (02:06)
[2024-12-10] MEDS ORDERED: TIZA-142 PO (02:06)
[2024-12-10] MEDS: CYCLOBENZAPRINE HCL 10 MG TAB PO ONE (02:38)
== END 2024-12-10 03:17 | disposition home or self-care (01) ==
LOC: ER 22:36
DX: S76.912A Strain of unspecified muscles, fascia and tendons at thigh level, left thigh, initial encounter (principal); J45.909 Unspecified asthma, uncomplicated; I10 Essential (primary) hypertension; Z90.49 Acquired absence of other specified parts of digestive tract; F12.90 Cannabis use, unspecified, uncomplicated; Z79.899 Other long term (current) drug therapy; Z79.52 Long term (current) use of systemic steroids; Z79.51 Long term (current) use of inhaled steroids; Z79.1 Long term (current) use of non-steroidal anti-inflammatories (NSAID); Z88.5 Allergy status to narcotic agent; Z88.1 Allergy status to other antibiotic agents; X58.XXXA Exposure to other specified factors, initial encounter; Y93.51 Activity, roller skating (inline) and skateboarding; Y92.89 Other specified places as the place of occurrence of the external cause; Y99.8 Other external cause status
CPT/HCPCS: 72170; 73552; 96372; 99284; J1885